=== PATIENT | female | born 1970 ===

== ENCOUNTER 2023-02-23 06:50 | Outpatient (REF) | payer OTHER, SELFPAY ==
[2023-02-23 07:01] LABS: MANUAL DIFF FLAG NO
[2023-02-23 07:09] LABS: Basophils Percent Auto 0.3 % (0-2); Eosinophils Absolute Auto 0.2 X10*3/uL (0.0-0.4); Eosinophils Percent Auto 3.5 % (0-4); Hematocrit 44.1 % (37.0-47.0); Hemoglobin 15.3 g/dl (12.0-16.0); Imm Gran Abs Auto 0.05 X10*3/uL (0.00-0.03); Imm Gran Pct Auto 0.7 % (0.0-0.4); Lymphocytes Absolute Auto 1.2 X10*3/uL (1.2-4.9); Lymphocytes Percent Auto 17.1 % (20-40); Mean Corpuscular HGB Conc 34.7 g/dl (31.0-35.0); Mean Corpuscular Hemoglobin 31.9 pg (27.0-33.0); Mean Corpuscular Volume 91.9 fL (80.0-98.0); Mean Platelet Volume 9.2 fL (9.4-12.3); Monocytes Absolute Auto 0.7 X10*3/uL (0.1-1.2); Neutrophils Absolute Auto 4.6 x10*3/uL (2.0-8.3); Neutrophils Percent Auto 68.4 % (45-73); Platelet Count 223 X10*3/uL (160-400); Red Cell Distribution Width 13.3 % (11.0-16.0); White Blood Count 6.8 X10*3/uL (4.8-10.8)
[2023-02-23 08:06] LABS: Alanine Aminotransferase 25 U/L (0-31); Albumin Level 4.1 g/dL (3.5-5.0); Alkaline Phosphatase 71 U/L (39-117); Anion Gap 11 (12-20); Aspartate Amino Transferase 23 U/L (5-31); Bilirubin Total 0.4 mg/dL (0.0-1.0); Blood Urea Nitrogen 10 mg/dL (9-16); Calcium 9.4 mg/dL (8.4-10.2); Carbon Dioxide 25 mmol/L (22-29); Chloride 105 mmol/L (96-108); Cholesterol 229 mg/dL; Estimated Glomerular Filt Rate > 60; Glucose Random 98 mg/dL (60-115); HDL Cholesterol 78 mg/dL; LDL Cholesterol Calculated 133 mg/dl; Sodium 137 mmol/L (135-145); Total Protein 7.2 g/dL (6.5-8.0); Triglycerides 90 mg/dL
== END 2023-02-23 06:51 | disposition home or self-care (01) ==
LOC: HO.LAB 06:50
PROVIDERS: PCP Internal Medicine; Visit Provider Internal Medicine
DX: Z00.00 Encounter for general adult medical examination without abnormal findings (principal); E88.2 Lipomatosis, not elsewhere classified; I10 Essential (primary) hypertension; M23.92 Unspecified internal derangement of left knee; R23.8 Other skin changes; Z72.0 Tobacco use
CPT/HCPCS: 36415; 80053; 80061; 85025

== ENCOUNTER 2023-03-09 07:38 | Outpatient (REF) | payer OTHER, SELFPAY | END 2023-03-09 07:39 | disposition home or self-care (01) | LOC: HO.MAMMO 07:38 | PROVIDERS: PCP Internal Medicine; Visit Provider Internal Medicine | DX: Z12.31 Encounter for screening mammogram for malignant neoplasm of breast (principal) | CPT/HCPCS: 77063; 77067; 99202 ==

== ENCOUNTER → 2023-03-09 07:45 | Outpatient (BNV) | payer OTHER, SELFPAY | PROVIDERS: PCP Internal Medicine; Visit Provider Radiology Diagnostic Radiology | DX: Z12.31 Encounter for screening mammogram for malignant neoplasm of breast (principal) | CPT/HCPCS: 77063; 77067 ==

== ENCOUNTER 2023-03-09 09:07 | Outpatient (AMB) | payer OTHER, SELFPAY ==
--- NOTE | 2023-03-09 09:32 | A.OFFVIS_ITS ---
Intake Vital Signs 03/09/23 09:36 Height 5 ft 6 in Weight 197 lb BMI 31.8 BP 128/67 Blood Pressure Location Rt brachial Position Standing Pulse 70 Intake Visit Reasons: lipoma left foot Intake Note: This patient presents for an assessment for lipoma on the left foot. Patient c/o; Onset 1-2 years ago, reports problems with wearing proper shoes, reports ? keratosis on the left side of face which has grown overtime, reports roughness in the lesion of the left side of face. Investigative Agent Required: No Accompanied by: Self / Same As Patient Medication List - Last Reconciled 03/09/23 by Tony Delacruz MD No Known Home Meds HPI lipoma left foot HPI Details 52-year-old female referred for a lipoma of the left foot.She also states that she has had this lesion on the left cheek that she wants removed. She has had both lesions for about 2 years now. She denies trauma to the area. She denies any drainage. [facility] Medical History (Updated 03/09/23 @ 10:00 by Tony Delacruz MD) Lipoma of foot Skin lesion of face Social History Alcohol intake: current Patient Tobacco Use Status: Current everyday Tobacco user Review of Systems Const Denies chills and Denies fever(s) Card Denies chest pain, Denies dyspnea and Denies dyspnea on exertion Resp Denies cough, Denies dyspnea and Denies dyspnea on exertion GI Denies hematochezia and Denies change in bowel habits Denies hematuria Musc Denies back pain and Denies limited range of motion Neuro Denies focal weakness and Denies convulsions Psych Denies depression and Denies mood swings Physical Exam Const General: comfortable and no acute distress Orientation/consciousness: patient oriented x3 HEENT Other: Left cheek near the preauricular area - flat, well defined pigmented skin lesion, about 5 mm in diameter Neck Neck: Yes no lymphadenopathy Resp Auscultation: clear to auscultation bilaterally Cardio Rhythm: regular rhythm GI Palpation (GI): Soft to palpation, nontender and no guarding Neuro General: patient oriented x3 Extrem Other: Left foot near the dorsum of the big toe is note of a lipomatous mass, well- defined, about 2 cm in diameter Assessment & Plan Assessment & Plan (1) Lipoma of foot: Code(s): D17.20 - Benign lipomatous neoplasm of skin and subcutaneous tissue of unspecified limb Plan: She has what appears to be a lipomatous mass on the left foot as described above. I explained the technique of excision under local anesthesia. I reviewed the risks including but not limited to bleeding, infections and poor healing, as well as the benefits and alternatives. She understands and wants to proceed. (2) Skin lesion of face: Code(s): L98.9 - Disorder of the skin and subcutaneous tissue, unspecified Plan: She has what appears to be a nevus on the left cheek as described above. I explained the technique of excision. I reviewed the risks, benefits, and alternatives. She also has given consent. Both excisions will be done on her next visit here in the office under local anesthesia. Coding Level of Care Code New Pt Level 3 (92394) Diagnoses Lipoma of foot D17.20 Skin lesion of face L98.9
[2023-03-09 09:36] VITALS: BP 128/67; PULSE 70; BMI 31.8
== END 2023-03-09 09:59 | disposition home or self-care (01) ==
PROVIDERS: Visit Provider Surgery
DX: D17.20 Benign lipomatous neoplasm of skin and subcutaneous tissue of unspecified limb (principal); L98.9 Disorder of the skin and subcutaneous tissue, unspecified
CPT/HCPCS: 99203

== ENCOUNTER 2023-04-05 09:45 | Outpatient (REF) | payer OTHER, SELFPAY | END 2023-04-05 09:46 | disposition home or self-care (01) | LOC: HO.LNP 09:45 | PROVIDERS: PCP Internal Medicine; Visit Provider Surgery | DX: L98.9 Disorder of the skin and subcutaneous tissue, unspecified (principal); D17.20 Benign lipomatous neoplasm of skin and subcutaneous tissue of unspecified limb | CPT/HCPCS: 11441; 88304; 88305 ==

== ENCOUNTER 2023-04-05 09:45 | Outpatient (AMB) | payer OTHER, SELFPAY ==
[2023-04-05 09:48] VITALS: BP 101/69; PULSE 63
--- NOTE | 2023-04-05 09:48 | A.OFFVIS_ITS ---
Intake Vital Signs 04/05/23 09:48 Height 5 ft 6 in BP 101/69 Blood Pressure Location Rt brachial Position Standing Pulse 63 Intake Visit Reasons: Excision of lipoma L foot and skin lesion L cheek Intake Note: This patient presents for in-office procedure for excision of lipoma of the left foot and excision skin lesion on the left cheek. 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 PFSH Medical History (Updated 03/09/23 @ 10:00 by Tony Delacruz MD) Skin lesion of face Lipoma of foot Surgical History (Updated 04/05/23 @ 09:49 by JENNIFER Del Cid) Hx of surgical procedure (~04/05/23) Social History Alcohol intake: current Patient Tobacco Use Status: Current everyday Tobacco user Physical Exam Vital Signs: Last Vital Signs Pulse 63 04/05/23 09:48 BP 101/69 04/05/23 09:48 Office Procedures Excision Details: She was in supine position with the head turned to the right. The area of the lesion on the left cheek was prepped and draped. Lidocaine 1% was used for local anesthesia. I made an incision around this lesion using blade 15. This was carried down sharply through the full-thickness of the skin and part of the subcutaneous fat to excise this entire lesion. The lesion was a pigmented, well-defined, about point 7 cm in widest dimension. I closed the incision with full-thickness nylon 5-0 simple interrupted sutures. Steri-Strips were then applied. [id number] face/ear/eyelid/nose/lip/mucous membrane 0.6cm-1cm Details: The area of the mass on the dorsum of the distal on the left side near the big toe was prepped and draped. Lidocaine 1% was used for local anesthesia. I made an incision on the skin overlying this mass using blade 15. This was carried down sharply full-thickness of the skin and part of the subcutaneous fat until the cyst capsule was visualized. I sharply dissected the cyst capsule off of the rest of the subcutaneous layer down to the root. This cyst capsule contains gelatinous material consistent with a ganglion cyst. This cyst was about a 2.1 cm diameter cyst. This was sent as a specimen. I closed the incision with full-thickness nylon 3-0 simple interrupted sutures. Dressings were applied in this area the foot was wrapped with Himanshu roll. The procedure was completed There was minimal blood loss. 85922-wiicm/arms/legs 2.1-3cm Procedure code (CPT) selection complete Assessment & Plan Assessment & Plan (1) Skin lesion of face: Code(s): L98.9 - Disorder of the skin and subcutaneous tissue, unspecified Plan: She was given wound care instructions. She will be seen in the office for removal sutures. She can take Tylenol and ibuprofen for the pain. (2) Lipoma of foot: Code(s): D17.20 - Benign lipomatous neoplasm of skin and subcutaneous tissue of unspecified limb Coding Level of Care Code Procedure Only Diagnoses Skin lesion of face L98.9 Lipoma of foot D17.20 CPT Codes Trunk/Arms/Legs - CPT: 61910-ntxje/arms/legs 2.1-3cm ([id number]) Face/Ear/Eyelid/Nose/Lip/Mucous Membrane - CPT: 41349-Uwpujjsi face/ear/eyelid/nose/lip/mucous membrane 0.6cm-1cm ([id number])
== END 2023-04-05 10:30 | disposition home or self-care (01) ==
PROVIDERS: PCP Internal Medicine; Visit Provider Surgery
DX: M67.472 Ganglion, left ankle and foot (principal); L82.1 Other seborrheic keratosis
CPT/HCPCS: 11403; 11441

== ENCOUNTER 2023-04-20 13:03 | Outpatient (AMB) | payer OTHER, SELFPAY ==
--- NOTE | 2023-04-20 13:11 | MHC.OFFVIS ---
Intake Intake Visit Reasons: s/p exc. of lipoma L foot and skin lesion L cheek Intake Note: This patient presents for a follow-up assessment status post excision of lipoma of the left foot and skin lesion of the left cheek. Patient denies complaints at this time pertaining to surgical procedure. Manager Photo Required: No Accompanied by: Self / Same As Patient Allergies No Known Allergies Allergy (Verified 04/20/23 13:17) HPI s/p exc. of lipoma L foot and skin lesion L cheek HPI Details She had undergone excision of a mass from the left foot as well as a skin lesion from the left cheek under local anesthesia last 04/04/2023. She tolerated procedure well. She currently denies significant complaints. [facility] Medical History Skin lesion of face Lipoma of foot Surgical History Hx of surgical procedure (~04/05/23) Social History Alcohol intake: current Patient Tobacco Use Status: Current everyday Tobacco user Review of Systems Const Denies chills and Denies fever(s) Card Denies chest pain, Denies dyspnea and Denies dyspnea on exertion Resp Denies cough, Denies dyspnea and Denies dyspnea on exertion GI Denies hematochezia and Denies change in bowel habits Denies hematuria Musc Denies back pain and Denies limited range of motion Neuro Denies focal weakness and Denies convulsions Psych Denies depression and Denies mood swings Physical Exam Const General: comfortable and no acute distress HEENT Other: Excision site on the left cheek is well healed Extrem Other: Excision site on the left foot on the dorsal aspect near the big toe is also well healed, not infected, sutures intact Assessment & Plan Assessment & Plan (1) Skin lesion of face: Code(s): L98.9 - Disorder of the skin and subcutaneous tissue, unspecified Plan: Path report shows seborrheic keratosis. (2) Lipoma of foot: Code(s): D17.20 - Benign lipomatous neoplasm of skin and subcutaneous tissue of unspecified limb Plan: Both excision sites are well healed. I removed all her sutures. Her path report for the left foot mass shows a ganglion cyst. Her report for the skin lesion on the face showed seborrheic keratosis. She can follow up on a p.r.n. basis. Coding Level of Care Code Global (33864) Diagnoses Skin lesion of face L98.9 Lipoma of foot D17.20
== END 2023-04-20 13:26 | disposition home or self-care (01) ==
PROVIDERS: PCP Internal Medicine; Visit Provider Surgery
DX: L98.9 Disorder of the skin and subcutaneous tissue, unspecified (principal); D17.20 Benign lipomatous neoplasm of skin and subcutaneous tissue of unspecified limb
CPT/HCPCS: 99024

== ENCOUNTER → 2023-04-20 13:03 | Outpatient (BNVA) | payer OTHER, SELFPAY | PROVIDERS: PCP Internal Medicine; Visit Provider Surgery ==

== ENCOUNTER 2023-07-05 10:09 | Outpatient (AMB) | payer OTHER, SELFPAY ==
--- NOTE | 2023-07-05 10:13 | A.OFFVIS_ITS ---
Intake Vital Signs 07/05/23 10:20 Height 5 ft 6 in BP 122/71 Blood Pressure Location Rt brachial Position Standing Pulse 73 Intake Visit Reasons: s/p exc of lipoma of L foot & skin lesion L cheek Intake Note: This patient presents for a follow-up assessment for wound checks status post excision lipoma of left foot, 03/2023. Patient c/o; Onset 3 days ago, reports raised lump surgical site left foot, reports no draining or bleeding, reports redness, reports pain, reports stiffness of the big toe. 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 She had been doing very well since that time However, about 2 days ago, she had noted the same mass again which appeared to be fluidfilled and was becoming larger and more painful. She therefore called yesterday and was instructed to see me in the office. She denies any drainage. [facility] Medical History (Updated 07/05/23 @ 10:36 by Tony Delacruz MD) Ganglion cyst Skin lesion of face Lipoma of foot Surgical History Hx of surgical procedure (~04/05/23) Social History Alcohol intake: current Patient Tobacco Use Status: Current everyday Tobacco user Review of Systems Const Denies chills and Denies fever(s) Card Denies chest pain, Denies dyspnea and Denies dyspnea on exertion Resp Denies cough, Denies dyspnea and Denies dyspnea on exertion GI Denies hematochezia and Denies change in bowel habits Denies hematuria Musc Denies back pain and Denies limited range of motion Neuro Denies focal weakness and Denies convulsions Psych Denies depression and Denies mood swings Physical Exam Vital Signs: Last Vital Signs Pulse 73 07/05/23 10:20 BP 122/71 07/05/23 10:20 Const General: comfortable and no acute distress Resp Effort & Inspection: normal respiratory effort Cardio Rate: regular rate Extrem Other: Dorsal aspect of the right foot near the base of the big toe - ganglion cyst, about 1 cm in diameter, with thin overlying skin Office Procedures FNAB Details: The area of the ganglion cyst was prepped and draped. I used a gauge 21 needle to aspirate the fluid on the cyst. Gelatinous material was aspirated. Dressings were then applied. Fine needle aspiration biopsy performed by: Tony Delacruz Anesthesia: none Needle size: 21 G Aspiration content: other (Gelatinous fluid) Patient tolerated procedure: well Complications: No Assessment & Plan Assessment & Plan (1) Ganglion cyst: Code(s): M67.40 - Ganglion, unspecified site Plan: She had a ganglion cyst removed from the right foot in March and this seems to have recurred. She had noticed this lump about 2 days and this is tender I told her that the overlying skin seems to be very thin so would be good to aspirate this. She agreed and had given consent. The area was prepped and draped. I used a gauge 21 needle and aspirated the cyst. She had tennis material was aspirated consistent with a ganglion cyst. I applied point dressings on the area. I did tell her that this will likely to recur and we can repeat aspiration or redo excision of the entire cyst She states that she will come back to the office when this happens. Coding Level of Care Code Est Pt Level 3 (02649) Diagnoses Ganglion cyst M67.40
[2023-07-05 10:20] VITALS: BP 122/71; PULSE 73
== END 2023-07-05 10:34 | disposition home or self-care (01) ==
LOC: HO.HGS 10:09
PROVIDERS: PCP Internal Medicine; Visit Provider Surgery
DX: M67.40 Ganglion, unspecified site (principal)
CPT/HCPCS: 99213

== ENCOUNTER → 2023-07-05 10:09 | Outpatient (BNVA) | payer OTHER, SELFPAY | PROVIDERS: PCP Internal Medicine; Visit Provider Surgery | DX: M67.40 Ganglion, unspecified site (principal) | CPT/HCPCS: 99212 ==

== ENCOUNTER 2023-10-02 12:15 | Day surgery (SDC) | payer OTHER, SELFPAY ==
[2023-10-02] MEDS: Lactated Ringers 1,000 ML 80 ML IVCONT (12:42)
[2023-10-02 12:44] LABS: UPreg QC Valid YES; Urine Pregnancy NEGATIVE (NEGATIVE)
--- NOTE | 2023-10-02 12:48 | HO.ANESPROP2 ---
HPI - Anesthesia Eval Consult details Narrative: for colon screen [facility] Active Problems Active Problems: All Active Problems (Updated 07/05/23 @ 10:36 by Tony Delacruz MD) Ganglion cyst (Acute) Skin lesion of face (Acute) Lipoma of foot (Acute) Past Medical History Medical History Ganglion cyst Skin lesion of face Lipoma of foot Family History Family history of problems with anesthesia: No Surgical History Surgical History Hx of surgical procedure (~04/05/23) History of Problems with Anesthesia: No Social History Social History Alcohol intake: current Patient Tobacco Use Status: Current everyday Tobacco user Tobacco use type: Cigarette Smoked in Last 30 Days: Yes Patient Interested in Nicotine Replacement: No Are you DNR?: No Advance Directives: No Advance Directives Information Provided: Yes Nutrition Risks: No Nutritional Risk FDLMP: 09/09 Meds Allergies Allergy/AdvReac Type Severity Reaction Status Date / Time No Known Allergies Allergy Verified 07/05/23 10:22 Active Medications: Current Medications Lactated Ringer's (Lr) 1,000 mls @ 80 mls/hr IVCONT .[id number] RITA Last Admin: 10/02/23 12:42 Dose: 80 mls/hr Sodium Biphosphate/Sodium Phosphate (Sodium Phosphate,[place] 133 Ml Enema) 133 ml MD ONCE PRN PRN Reason: Poor Colonoscopy Prep Results Home Medications Medication Instructions Recorded Confirmed Last Taken Type No Known Home Meds 03/09/23 07/05/23 Unknown History Exam Pertinent Lab Results Pertinent Lab Results: Laboratory Tests 10/02/23 12:30 Urine Test NEGATIVE Airway Mallampati Class: II TM Dist: >3cm Neck ROM: Full Heart: rrr Lungs: cta Assessment and Plan Assessment Anesthesia Assessment: Anesthesia Plan Discussed, Smoking Cess. Discussed and Chart Reviewed Final Anesthetic Review Family History of Problems with Anesthesia: No History of Problems with Anesthesia: No NPO: Yes ASA Class: II (smoker) Final Preanesthetic Review: No Changes in Pt Med Stat, Meds/Allgs Chart Reviewed, Consent Obtained/Reviewed and Anes Risks/Benef Reviewed Patient Risk: Intermediate Procedure Risk: Low Anesthetic Plan Anesthetic Plan: MAC: Disposition: Standard PACU
[2023-10-02 12:51] VITALS: BP 124/68; PULSE 65; RESP 18; TEMP 36.9; O2SAT 95; BMI 31.5
[2023-10-02 14:04] VITALS: BP 105/71; PULSE 69; RESP 16; TEMP 36.7; O2SAT 95
--- NOTE | 2023-10-02 14:04 | PM.OP ---
Brief Operative Note Date of Service: 10/02/23 Pre-op diagnosis: Screening Post-op diagnosis: other (Diverticulosis) Procedure: Colonoscopy to the cecum and TI Surgeon: Feroz Wells MD Anesthesia: MAC Was an Item Processing Clerk used for this Procedure?: No Estimated blood loss (mL): 0 Pathology: none sent Condition: stable Disposition: PACU
[2023-10-02 14:21] VITALS: BP 108/70; PULSE 56; RESP 18; TEMP 36.7; O2SAT 97
--- NOTE | 2023-10-02 15:35 | OP_ITS ---
DATE OF SERVICE: 10/02/2023 SURGEON: Feroz Wells MD INDICATIONS: Patient presents for evaluation of colorectal cancer screening. Full consent has been obtained from her for this, including risks of bleeding and perforation. PREOPERATIVE DIAGNOSIS: Colorectal cancer screening. POSTOPERATIVE DIAGNOSIS: PROCEDURE PERFORMED: Colonoscopy to the cecum and terminal ileum. ESTIMATED BLOOD LOSS: COMPLICATIONS: ANESTHESIA: Monitored anesthesia care. ASSISTANTS: SPECIMENS: POSTOPERATIVE DIAGNOSES: Colorectal cancer screening, diverticulosis, and internal hemorrhoids. DESCRIPTION OF PROCEDURE: The patient was placed in the left lateral decubitus position. The digital rectal exam revealed no abnormalities. The Olympus video pediatric colonoscope was then entered into the rectum and advanced easily to the cecum. Once in the cecum, I did identify normal-appearing cecal pouch with appendiceal orifice and a normal-appearing ileocecal valve. The terminal ileum was cannulated and appeared normal. The scope was withdrawn back in the colon. The entire cecum and ileocecal valve appeared normal. The scope was slowly withdrawn, assessing all mucosal surfaces carefully. Preparation was excellent. I did not visualize any sign of polyps, colitis, nor angiodysplasias. There was a mild amount of sigmoid diverticulosis. In the rectum, the scope was retroflexed visualizing internal hemorrhoids, but no other pathology. The rectal mucosa appeared normal. The scope was straightened out and withdrawn from the patient. She tolerated the procedure well and was returned to the recovery area in stable condition. IMPRESSION: 1. Diverticulosis. 2. Internal hemorrhoids. PLAN: Given today's negative exam and no family history of colon cancer, I would recommend a followup coloscopy in 10 years for further screening. She will, otherwise, see me on a p.r.n. basis. MD TIAN Carrasquillo/OLGA / [id number]
== END 2023-10-02 14:44 | disposition home or self-care (01) ==
PROVIDERS: Anesthesiology; PCP Internal Medicine; Visit Provider Internal Medicine
PROC: 0DJD8ZZ Inspection of Lower Intestinal Tract, Via Natural or Artificial Opening Endoscopic (ICD-10-PCS; CPT 45378; principal; 2023-10-02 14:30)
DX: Z12.11 Encounter for screening for malignant neoplasm of colon (principal); K57.30 Diverticulosis of large intestine without perforation or abscess without bleeding; K64.8 Other hemorrhoids
CPT/HCPCS: 45378; 81025; J2704

== ENCOUNTER 2023-10-06 07:23 | Outpatient (REF) | payer OTHER, SELFPAY ==
[2023-10-06 07:46] LABS: MANUAL DIFF FLAG NO
[2023-10-06 08:16] LABS: Basophils Percent Auto 0.4 % (0-2); Eosinophils Absolute Auto 0.1 X10*3/uL (0.0-0.4); Eosinophils Percent Auto 1.8 % (0-4); Hematocrit 44.2 % (37.0-47.0); Hemoglobin 15.4 g/dl (12.0-16.0); Imm Gran Abs Auto 0.03 X10*3/uL (0.00-0.03); Imm Gran Pct Auto 0.4 % (0.0-0.4); Lymphocytes Absolute Auto 2.1 X10*3/uL (1.2-4.9); Lymphocytes Percent Auto 28.1 % (20-40); Mean Corpuscular HGB Conc 34.8 g/dl (31.0-35.0); Mean Corpuscular Hemoglobin 31.7 pg (27.0-33.0); Mean Corpuscular Volume 90.9 fL (80.0-98.0); Mean Platelet Volume 9.3 fL (9.4-12.3); Monocytes Absolute Auto 0.6 X10*3/uL (0.1-1.2); Monocytes Percent Auto 7.5 % (2-11); Neutrophils Absolute Auto 4.5 x10*3/uL (2.0-8.3); Neutrophils Percent Auto 61.8 % (45-73); Platelet Count 252 X10*3/uL (160-400); Red Blood Count 4.86 X10*6/uL (4.20-5.50); Red Cell Distribution Width 13.2 % (11.0-16.0); White Blood Count 7.3 X10*3/uL (4.8-10.8)
[2023-10-06 08:41] LABS: Alanine Aminotransferase 17 U/L (0-31); Albumin Level 4.4 g/dL (3.5-5.0); Alkaline Phosphatase 68 U/L (39-117); Anion Gap 13 (12-20); Aspartate Amino Transferase 18 U/L (5-31); Bilirubin Total 0.5 mg/dL (0.0-1.0); Blood Urea Nitrogen 12 mg/dL (9-16); Calcium 9.2 mg/dL (8.4-10.2); Carbon Dioxide 23 mmol/L (22-29); Chloride 103 mmol/L (96-108); Cholesterol 221 mg/dL (<200); Estimated Glomerular Filt Rate > 60; Glucose Random 90 mg/dL (60-115); HDL Cholesterol 63 mg/dL (>40); LDL Cholesterol Calculated 142 mg/dL (<100); Potassium 3.8 mmol/L (3.3-5.1); Sodium 135 mmol/L (135-145); Total Protein 7.4 g/dL (6.5-8.0); Triglycerides 82 mg/dL (<150)
== END 2023-10-06 07:24 | disposition home or self-care (01) ==
LOC: HO.LAB 07:23
PROVIDERS: PCP Internal Medicine; Visit Provider Internal Medicine
DX: E78.00 Pure hypercholesterolemia, unspecified (principal); I10 Essential (primary) hypertension; D72.810 Lymphocytopenia; M23.92 Unspecified internal derangement of left knee
CPT/HCPCS: 36415; 80053; 80061; 85025